=== PATIENT | female | born 1965 | race Caucasian/White ===

== ENCOUNTER 2019-09-01 17:57 | Emergency (ER) | payer OTHER, SELFPAY ==
[2019-09-02 12:19] LABS: SARS-CoV-2 MS2 Positive; SARS-CoV-2 N Gene Positive; SARS-CoV-2 S Gene Positive; SARS-CoV-2 orf1ab Positive
== END 2019-09-01 18:31 | disposition home or self-care (01) ==
LOC: ERS 17:57
DX: U07.1 COVID-19 (principal); F32.9 Major depressive disorder, single episode, unspecified
CPT/HCPCS: 87635; 99283; U0003

== ENCOUNTER 2019-09-13 18:43 | Emergency (ER) | payer BC, OTHER ==
[2019-09-14 15:10] LABS: SARS-CoV-2 MS2 Positive; SARS-CoV-2 N Gene Positive; SARS-CoV-2 S Gene Positive; SARS-CoV-2 orf1ab Positive
== END 2019-09-13 19:27 | disposition home or self-care (01) ==
LOC: ERS 18:43
DX: U07.1 COVID-19 (principal); F32.9 Major depressive disorder, single episode, unspecified
CPT/HCPCS: 87635; 99283; U0003

== ENCOUNTER 2019-09-22 17:17 | Emergency (ER) | payer BC, OTHER ==
[2019-09-23 13:19] LABS: SARS-CoV-2 MS2 Positive; SARS-CoV-2 N Gene Positive; SARS-CoV-2 S Gene Positive; SARS-CoV-2 orf1ab Positive
== END 2019-09-22 17:38 | disposition home or self-care (01) ==
LOC: ERS 17:17
DX: U07.1 COVID-19 (principal); F32.9 Major depressive disorder, single episode, unspecified
CPT/HCPCS: 87635; 99283; U0003

== ENCOUNTER 2019-09-29 16:06 | Emergency (ER) | payer BC, OTHER | END 2019-09-29 16:26 | disposition home or self-care (01) | LOC: ERS 16:06 | DX: Z20.828 Contact with and (suspected) exposure to other viral communicable diseases (principal); F32.9 Major depressive disorder, single episode, unspecified | CPT/HCPCS: 99283 ==